=== PATIENT | male | born 1980 | race Caucasian/White ===

== ENCOUNTER 2019-04-18 01:18 | Emergency (ER) | payer BC ==
--- NOTE | 2019-04-18 02:42 | EDM.PDOC ---
ED HPI GENERAL MEDICAL PROBLEM - General Chief Complaint: General Stated Complaint: R hand swollen Time Seen by Provider: 04/18/19 02:15 Source of Information: Reports: Patient History Limitations: Reports: No Limitations - History of Present Illness INITIAL COMMENTS - FREE TEXT/NARRATIVE: 38-year-old male presents emergency room with diffuse swelling of the right hand. He denies any specific trauma or event. Symptoms seemed to start around 48 hours ago with associated swelling in the last 24 hours. 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 There is no lacerations or pronounced cuts the hand. There is warmth to it he denies any numbness or tingling. Passive stretch of the hand does not bother him. There is no swelling of the forearm elbow or shoulder. He denies any fever or chills recent illnesses. There is no crepitation over the soft tissues. 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 Right Hand Pain Score (Numeric/FACES): 4 - Related Data Allergies Allergy/AdvReac Type Severity Reaction Status Date / Time No Known Allergies Allergy Verified 04/18/19 01:39 Home Meds: Home Meds Multivitamin [Multivitamins] 1 each PO DAILY 04/18/19 [History] Past Medical History HEENT History: Reports: Impaired Vision Other HEENT History: wears glasses - Infectious Disease History Infectious Disease History: Reports: Chicken Pox Social & Family History - Tobacco Use Smoking Status *Q: Former Smoker Years of Tobacco use: 20 Used Tobacco, but Quit: No - Caffeine Use Caffeine Use: Reports: Coffee, Soda - Recreational Drug Use Recreational Drug Use: No ED ROS GENERAL - Review of Systems Review Of Systems: See Below Constitutional: Denies: Fever, Chills HEENT: Reports: No Symptoms Respiratory: Reports: No Symptoms Cardiovascular: Reports: No Symptoms Endocrine: Reports: No Symptoms GI/Abdominal: Reports: No Symptoms : Reports: No Symptoms Musculoskeletal: Reports: Hand Pain, Other (Diffuse Swelling of the right hand) Skin: Denies: Rash, Wound Neurological: Denies: Numbness, Paresthesia, Tingling Psychiatric: Reports: No Symptoms Hematologic/Lymphatic: Reports: No Symptoms Immunologic: Reports: No Symptoms ED EXAM, GENERAL - Physical Exam Exam: See Below Exam Limited By: No Limitations General Appearance: Alert, WD/WN, No Apparent Distress Ears: Hearing Grossly Normal Nose: Normal Inspection Throat/Mouth: Normal Voice, No Airway Compromise Head: Atraumatic, Normocephalic Neck: Normal Inspection Respiratory/Chest: No Respiratory Distress Back Exam: Normal Inspection Extremities: Increased Warmth (Right hand), Other (Diffuse moderate right hand passive stretch of the fingers is negative for pain or discomfort, no redness or erythema but warmth is noted in the right hand. There is no lacerations or wounds to the hand) Neurological: Alert, Oriented Psychiatric: Normal Affect, Normal Mood Skin Exam: Warm, Normal Color, No Rash Course - Vital Signs Last Recorded V/S: Last Vital Signs Temp 97.7 F 04/18/19 01:30 Pulse 112 H 04/18/19 01:30 Resp 18 04/18/19 01:30 BP 146/85 H 04/18/19 01:30 Pulse Ox 97 04/18/19 01:30 - Orders/Labs/Meds Orders: Active Orders 24 hr Category Date Time Status Hand Comp Min 3V Rt [CR] Stat Exams 04/18/19 01:43 Ordered CBC WITH AUTO DIFF [HEME] Stat Lab 04/18/19 03:00 Results SEDIMENTATION RATE MANUAL [HEME] Stat Lab 04/18/19 03:00 Results Ketorolac [Toradol] Med 04/18/19 03:30 Ordered 30 mg PO Q6H Medication Orders Ketorolac Tromethamine (Toradol) 30 mg PO Q6H JAKE Stop: 04/23/19 03:31 Last Admin: 04/18/19 03:38 Dose: 30 mg Labs: Laboratory Tests 04/18/19 04/18/19 Range/Units 03:00 03:00 WBC 8.51 (5.00-10.00) 10^3/uL RBC 5.34 (4.50-6.00) 10^6/uL Hgb 16.5 (13.0-17.0) g/dL Hct 48.3 (40.0-52.0) % MCV 90.4 (82.0-92.0) fL MCH 30.9 (27.0-31.0) pg MCHC 34.2 (32.0-36.0) g/dL RDW 11.8 (11.5-14.5) % Plt Count 198 (150-400) 10^3/uL MPV 9.1 (7.4-10.4) fL Immature Gran % (Auto) 0.1 (0.0-5.0) % Neut % (Auto) 75.2 H (50.0-70.0) % Lymph % (Auto) 12.5 L (20.0-40.0) % [place] % (Auto) 10.5 H (2.0-8.0) % Eos % (Auto) 1.5 (1.0-3.0) % Baso % (Auto) 0.2 (0.0-1.0) % Immature Gran # (Auto) 0.01 (0.00-0.50) 10^3/uL Neut # (Auto) 6.40 (2.50-7.00) 10^3/uL Lymph # (Auto) 1.06 (1.00-4.00) 10^3/uL [place] # (Auto) 0.89 H (0.10-0.80) 10^3/uL Eos # (Auto) 0.13 (0.10-0.30) 10^3/uL Baso # (Auto) 0.02 (0.00-0.10) 10^3/uL C-Reactive Protein 2.6 H (0.0-0.9) mg/dL Meds: Medications Generic Name Dose Route Start Last Admin Trade Name Freq PRN Reason Stop Dose Admin Ketorolac Tromethamine 30 mg 04/18/19 03:30 04/18/19 03:38 Toradol PO 04/23/19 03:31 30 mg Q6H JAKE Administration Discontinued Medications Generic Name Dose Route Start Last Admin Trade Name Freq PRN Reason Stop Dose Admin Ketorolac Tromethamine 30 mg 04/18/19 02:43 04/18/19 02:54 Toradol IM 04/18/19 02:44 30 mg ONETIME ONE Administration - Radiology Interpretation Free Text/Narrative:: X-rays 3 views right hand Findings: No acute fractures or suspicious bony lesions are seen. No definite malalignment. Mild soft tissue swelling Impression: No acute bony abnormalities identified Departure - Departure Time of Disposition: 03:39 Disposition: Home, Self-Care 01 Condition: Good Clinical Impression: Swelling of right hand, Tenosynovitis of right hand - Discharge Information Instructions: Tenosynovitis Forms: ED Department Discharge - My Orders Last 24 Hours: My Active Orders 04/18/19 01:43 Hand Comp Min 3V Rt [CR] Stat 04/18/19 03:00 CBC WITH AUTO DIFF [HEME] Stat SEDIMENTATION RATE MANUAL [HEME] Stat 04/18/19 03:30 Ketorolac [Toradol] 30 mg PO Q6H - Assessment/Plan Last 24 Hours: My Active Orders 04/18/19 01:43 Hand Comp Min 3V Rt [CR] Stat 04/18/19 03:00 CBC WITH AUTO DIFF [HEME] Stat SEDIMENTATION RATE MANUAL [HEME] Stat 04/18/19 03:30 Ketorolac [Toradol] 30 mg PO Q6H Assessment:: 1. Right hand swelling 2. Tenosynovitis right hand Plan: 1. Splint for 7 days 2. Toradol 10 mg 3 times a day with food 3. No activity or work with the right hand 4. Follow-up with orthopedist if symptoms are not improving. 5. Follow-up with your primary care if you begin to notice redness, significant increase in pain, or fever or chills.
[2019-04-18] MEDS: Ketorolac 30 MG/ML SDV IM ONE (02:54)
[2019-04-18] MEDS: Ketorolac 10 MG Tab PO SCH (03:38)
--- NOTE | 2019-04-18 07:00 | CR ---
[id number] RAD/RAD Hand Right 3V EXAM: RAD Hand Right 3V CLINICAL DATA: SWOLLEN RIGHT HAND COMPARISON: NO PREVIOUS SIMILAR EXAM IS AVAILABLE. FINDINGS: No fracture or dislocation is seen. There is no radiopaque foreign body in the soft tissues. There is no air in the soft tissues. There is no cortical thickening or periosteal reaction either. IMPRESSION: NEGATIVE PLAIN FILM EXAM. Dashawn Poon MD 04/18/19 0659 Thank you for allowing us to participate in the care of your patient.
== END 2019-04-18 03:48 | disposition home or self-care (01) ==
LOC: KA.ED 01:18
DX: M79.89 Other specified soft tissue disorders (principal); M65.9 Synovitis and tenosynovitis, unspecified; Z87.891 Personal history of nicotine dependence
CPT/HCPCS: 36415; 73130; 85025; 85651; 86140; 96372; 99284; A9270; J1885

== ENCOUNTER 2021-07-22 17:16 | Emergency (ER) | payer BC ==
[2021-07-22] MEDS: Lidocaine 2% 5 ML SDV INJECT ONE (17:44)
[2021-07-22] MEDS: Bacitracin/Neomycin/Polymyxin B Oint 0.9 GM U/D Packet TOP SCH (17:54)
== END 2021-07-22 18:20 | disposition home or self-care (01) ==
LOC: KA.ED 17:16
DX: S61.211A Laceration without foreign body of left index finger without damage to nail, initial encounter (principal); W26.0XXA Contact with knife, initial encounter
CPT/HCPCS: 12001; 99282-25; 99283